=== PATIENT | female | born 1935 | race Caucasian/White ===

== ENCOUNTER 2016-09-19 22:09 | Emergency (ER) | payer OTHER ==
[~2016-09-19] VITALS: Ht 162.6 cm; Wt 125.1 kg
[~2016-09-19 22:09] MED LIST: ACID CONTROL150 MG PO; ALLERGY RELIEF10 MG PO; ALLOPURINOL100 MG PO; ASPIR-LOW81 MG PO; Alphagan P 0.15% Oph BOTH EYES; Amoxicillin PO; Aspirin E.C. PO; BABY ASPIRIN81 M1 PO; BRIMONIDINE TART5 ML BOTH EYES; CLARITIN10 M3 PO; COSOPT EYE DROPS5 ML BOTH EYES; COZAAR50 MG PO; Cipro PO; Claritin,Alavart PO; Cosopt 0.5% Ophth So BOTH EYES; Cozaar PO; DESYREL12.5 MG PO; Desyrel PO; FLUNISOLIDE25 ML BOTH NARES; Flonase BOTH NARES; HYDROCHLOROTH12.5 MG PO; HYDROCHLOROTHIA25 MG PO; Hydrodiuril,Oretic,E PO; INDOCIN25 MG PO; KLONOPIN0.5 M1 PO; KlonoPIN PO; LOSARTAN POTASS50 MG PO; Levothroid,Synthroid PO; Nitrostat,NitroQuick SL; OSTEO BI-FLEX1 EAC1 PO; PROAIR HFA8.5 GM IH; Pepcid PO; SIMVASTATIN20 MG PO; SYNTHROID100 MCG PO; TENORMIN50 MG PO; TRAZODONE HCL50 MG PO; Tenormin PO; Tylenol Regular Stre PO; ZANTAC150 MG PO; ZOCOR20 MG PO; ZYLOPRIM100 MG PO; Zocor PO; Zyloprim PO
[2016-09-19] MEDS ORDERED: NAPROSYN500 MG PO (23:28)
[2016-09-19 23:49] VITALS: BP 164/73
== END 2016-09-20 00:03 | disposition home or self-care (01) ==
LOC: EME → EDBD 22:09 → EME 22:09
DX: S83.92XA Sprain of unspecified site of left knee, initial encounter (principal); W01.0XXA Fall on same level from slipping, tripping and stumbling without subsequent striking against object, initial encounter; Y92.009 Unspecified place in unspecified non-institutional (private) residence as the place of occurrence of the external cause; I10 Essential (primary) hypertension; Z79.82 Long term (current) use of aspirin; Z87.891 Personal history of nicotine dependence
CPT/HCPCS: 73564; 99281; 99284

== ENCOUNTER 2016-09-29 09:28 | Inpatient (IN) | payer OTHER ==
[~2016-09-29] VITALS: Ht 162.6 cm; Wt 120.1 kg
[~2016-09-29 09:28] MED LIST changes: +NAPROSYN500 MG PO
[2016-09-29 10:27] LABS: HEMATOCRIT 31.4 % (36.0-46.0); MCH 26.6 PG (29.0-34.0); MCHC 30.3 G/DL (30.0-36.0); MEAN PLAT.VOLUME 9.8 uM^3 (9.5-12.4); PLATELET COUNT 300 K/uL (156-360); RBC DIS.WIDTH-CV 17.2 % (11.8-14.6); RBC DIS.WIDTH-SD 55.2 % (39-53); RED BLOOD COUNT 3.57 M/uL (3.80-5.20); WHITE BLOOD COUNT 11.2 K/uL (4.1-10.2)
[2016-09-29 10:41] LABS: CHLORIDE 102 mEq/L (99-109); POTASSIUM 4.4 mEq/L (3.7-5.4); SODIUM 139 mEq/L (136-147)
[2016-09-29 10:42] LABS: GLUCOSE 107 mg/dL (70-99)
[2016-09-29 10:44] LABS: ANION GAP 12 MEQ/L (2-14)
[2016-09-29 10:46] LABS: GFR ESTIMATE (CALCULATED) 46 mL/min/
[2016-09-29 10:47] LABS: UREA NITROGEN (BUN) 21 mg/dL (9-23)
[2016-09-29 11:45] LABS: TROP-I INTERPRETATION NEGATIVE; TROPONIN-I < 0.01 ng/mL (0.0-0.30)
[2016-09-29 12:13] LABS: D-DIMER ELISA 0.71 mg/L FEU (< 0.57)
[2016-09-29 13:04] LABS: EOSINOPHIL (%) 1.3 % (0-5); EOSINOPHIL COUNT 0.2 K/uL (0-0.3); HEMATOCRIT 32.5 % (36.0-46.0); IMMATURE GRANULOCYTE (%) 1.2 % (0.0-0.7); IMMATURE GRANULOCYTE COUNT 0.2 K/uL; INSTRUMENT ABS NEUTROPHIL CT 10.1 K/uL; LYMPHOCYTE COUNT 1.4 K/uL (1.0-2.8); MCH 26.7 PG (29.0-34.0); MCHC 30.2 G/DL (30.0-36.0); MCV 88.6 FL (83-99); MEAN PLAT.VOLUME 9.6 uM^3 (9.5-12.4); MONOCYTE (%) 8.2 % (3-12); MONOCYTE COUNT 1.1 K/uL (0-0.8); NEUTROPHIL (%) 78.1 % (45-76); NEUTROPHIL COUNT 10.1 K/uL (1.8-6.4); PLATELET COUNT 292 K/uL (156-360); RBC DIS.WIDTH-CV 17.2 % (11.8-14.6); RBC DIS.WIDTH-SD 55.3 % (39-53); RED BLOOD COUNT 3.67 M/uL (3.80-5.20); WHITE BLOOD COUNT 12.9 K/uL (4.1-10.2)
[2016-09-29] MEDS ORDERED: ASPIR-LOW81 MG PO (15:11)
[2016-09-29] MEDS ORDERED: LOSARTAN-HCTZ1 EACH PO (15:14)
[2016-09-29] MEDS ORDERED: CLARITIN,ALAVAR10 MG PO (15:14)
[2016-09-29] MEDS ORDERED: TENORMIN50 MG PO (15:18)
[2016-09-29] MEDS ORDERED: ZYLOPRIM100 MG PO (15:19)
[2016-09-29] MEDS ORDERED: KLONOPIN0.5 M1 PO (15:20)
[2016-09-29] MEDS ORDERED: LEVOTHYROXINE125 MCG PO (15:20)
[2016-09-29] MEDS ORDERED: ALPHAGAN P100 DROP/1 BOTH EYES (15:21)
[2016-09-29] MEDS ORDERED: COSOPT EYE DROPS5 ML BOTH EYES (15:21)
[2016-09-29] MEDS ORDERED: VITAMIN D31000 UNI2 PO (15:25)
[2016-09-29] MEDS ORDERED: OMEGA-3 FLAXS1000 MG PO (15:25)
[2016-09-29] MEDS ORDERED: OMEPRAZOLE20 M2 PO (15:26)
[2016-09-29] MEDS ORDERED: GABAPENTIN300 MG PO ×2 (15:26)
[2016-09-29] MEDS ORDERED: FLUNISOLIDE25 ML BOTH NARES (15:27)
[2016-09-29 19:30] VITALS: BP 179/75
[2016-09-29 20:14] LABS: TROP-I INTERPRETATION NEGATIVE; TROPONIN-I < 0.01 ng/mL (0.0-0.30)
[2016-09-30 00:20] VITALS: BP 159/69
[2016-09-30 04:00] VITALS: BP 132/60
[2016-09-30 04:25] LABS: INFLUENZA A VIRAL ANTIGEN NEGATIVE; INFLUENZA B VIRAL ANTIGEN NEGATIVE
[2016-09-30 04:47] LABS: EOSINOPHIL (%) 1.9 % (0-5); EOSINOPHIL COUNT 0.2 K/uL (0-0.3); HEMATOCRIT 32.1 % (36.0-46.0); IMMATURE GRANULOCYTE (%) 0.7 % (0.0-0.7); IMMATURE GRANULOCYTE COUNT 0.1 K/uL; LYMPHOCYTE COUNT 1.5 K/uL (1.0-2.8); MCH 26.7 PG (29.0-34.0); MCHC 30.5 G/DL (30.0-36.0); MCV 87.5 FL (83-99); MEAN PLAT.VOLUME 9.7 uM^3 (9.5-12.4); MONOCYTE (%) 8.1 % (3-12); MONOCYTE COUNT 0.9 K/uL (0-0.8); NEUTROPHIL (%) 74.5 % (45-76); PLATELET COUNT 324 K/uL (156-360); RBC DIS.WIDTH-CV 17.1 % (11.8-14.6); RBC DIS.WIDTH-SD 54.4 % (39-53); RED BLOOD COUNT 3.67 M/uL (3.80-5.20); WHITE BLOOD COUNT 10.7 K/uL (4.1-10.2)
[2016-09-30 04:59] LABS: CHLORIDE 101 mEq/L (99-109); POTASSIUM 4.1 mEq/L (3.7-5.4); SODIUM 142 mEq/L (136-147)
[2016-09-30 05:10] LABS: TROP-I INTERPRETATION NEGATIVE; TROPONIN-I < 0.01 ng/mL (0.0-0.30)
[2016-09-30 05:20] LABS: GFR ESTIMATE (CALCULATED) 35 mL/min/; GLUCOSE 80 mg/dL (70-99); UREA NITROGEN (BUN) 25 mg/dL (9-23)
[2016-09-30 08:06] LABS: INTERNAL CONTROL VALID? YES
[2016-09-30 09:35] VITALS: BP 134/62
[2016-09-30 11:45] VITALS: BP 104/59
[2016-09-30 15:57] VITALS: BP 145/67
[2016-09-30 19:19] VITALS: BP 160/83
[2016-10-01 00:29] VITALS: BP 143/67
[2016-10-01 03:05] VITALS: BP 136/65
[2016-10-01 07:44] VITALS: BP 148/68
[2016-10-01 09:04] LABS: HEMATOCRIT 31.5 % (36.0-46.0); MCH 26.8 PG (29.0-34.0); MCHC 30.2 G/DL (30.0-36.0); MCV 88.7 FL (83-99); MEAN PLAT.VOLUME 9.7 uM^3 (9.5-12.4); NRBC (%) 0.2 /100 WBC (0-0); PLATELET COUNT 316 K/uL (156-360); RBC DIS.WIDTH-SD 55.1 % (39-53); RED BLOOD COUNT 3.55 M/uL (3.80-5.20); WHITE BLOOD COUNT 8.4 K/uL (4.1-10.2)
[2016-10-01 09:29] LABS: ANION GAP 11 MEQ/L (2-14); CHLORIDE 98 MEQ/L (99-109); GFR ESTIMATE (CALCULATED) 42 mL/min/; POTASSIUM 3.7 MEQ/L (3.7-5.4); SAMPLE HEMOLYSIS CHECK 0; SAMPLE ICTERIC CHECK 0; SAMPLE LIPEMIA CHECK 0; SODIUM 140 MEQ/L (136-147); UREA NITROGEN (BUN) 21 mg/dL (9-23)
[2016-10-01 09:30] LABS: GLUCOSE 110 mg/dL (70-99)
[2016-10-01 13:02] VITALS: BP 150/72
[2016-10-01 16:26] VITALS: BP 141/63
[2016-10-01 19:27] VITALS: BP 169/71
[2016-10-02] VITALS (7 sets, daily range): BP systolic 135–171; BP diastolic 65–77
[2016-10-02 06:56] LABS: MCH 26.9 PG (29.0-34.0); MCHC 30.3 G/DL (30.0-36.0); MCV 88.6 FL (83-99); MEAN PLAT.VOLUME 9.5 uM^3 (9.5-12.4); PLATELET COUNT 328 K/uL (156-360); RBC DIS.WIDTH-CV 17.2 % (11.8-14.6); RBC DIS.WIDTH-SD 55.2 % (39-53); WHITE BLOOD COUNT 10.5 K/uL (4.1-10.2)
[2016-10-02 07:18] LABS: ANION GAP 11 MEQ/L (2-14); CHLORIDE 99 MEQ/L (99-109); GFR ESTIMATE (CALCULATED) 46 mL/min/; GLUCOSE 92 mg/dL (70-99); POTASSIUM 4.2 MEQ/L (3.7-5.4); SAMPLE HEMOLYSIS CHECK 0; SAMPLE ICTERIC CHECK 0; SAMPLE LIPEMIA CHECK 0; SODIUM 139 MEQ/L (136-147); UREA NITROGEN (BUN) 23 mg/dL (9-23)
[2016-10-03 04:41] VITALS: BP 175/82
[2016-10-03 06:52] LABS: HEMATOCRIT 31.7 % (36.0-46.0); MCH 26.9 PG (29.0-34.0); MCHC 30.3 G/DL (30.0-36.0); MCV 88.8 FL (83-99); MEAN PLAT.VOLUME 9.2 uM^3 (9.5-12.4); PLATELET COUNT 314 K/uL (156-360); RBC DIS.WIDTH-CV 16.9 % (11.8-14.6); RBC DIS.WIDTH-SD 54.8 % (39-53); RED BLOOD COUNT 3.57 M/uL (3.80-5.20); WHITE BLOOD COUNT 11.1 K/uL (4.1-10.2)
[2016-10-03 07:17] LABS: ANION GAP 10 MEQ/L (2-14); CHLORIDE 99 MEQ/L (99-109); GFR ESTIMATE (CALCULATED) 46 mL/min/; GLUCOSE 105 mg/dL (70-99); POTASSIUM 4.2 MEQ/L (3.7-5.4); SAMPLE HEMOLYSIS CHECK 0; SAMPLE ICTERIC CHECK 0; SAMPLE LIPEMIA CHECK 0; SODIUM 138 MEQ/L (136-147); UREA NITROGEN (BUN) 23 mg/dL (9-23)
[2016-10-03 07:51] VITALS: BP 170/74
[2016-10-03 09:00] VITALS: BP 171/80
[2016-10-03 11:08] VITALS: BP 118/60
[2016-10-03] MEDS ORDERED: CEFDINIR300 MG PO (12:41)
[2016-10-03 16:10] VITALS: BP 132/75
[2016-10-03 19:58] VITALS: BP 168/81
[2016-10-04] VITALS: BP 121/60
[2016-10-04 04:00] VITALS: BP 137/64
[2016-10-04 06:42] LABS: ANION GAP 11 MEQ/L (2-14); CHLORIDE 98 MEQ/L (99-109); GFR ESTIMATE (CALCULATED) 46 mL/min/; GLUCOSE 122 mg/dL (70-99); POTASSIUM 4.4 MEQ/L (3.7-5.4); SAMPLE HEMOLYSIS CHECK 0; SAMPLE ICTERIC CHECK 0; SAMPLE LIPEMIA CHECK 0; SODIUM 136 MEQ/L (136-147); UREA NITROGEN (BUN) 27 mg/dL (9-23)
[2016-10-04 09:13] VITALS: BP 122/65
[2016-10-04 12:56] VITALS: BP 132/80
[2016-10-04 15:58] VITALS: BP 140/73
[2016-10-04 20:00] VITALS: BP 147/68
[2016-10-05] VITALS: BP 128/65
[2016-10-05 04:00] VITALS: BP 109/53
[2016-10-05 08:29] VITALS: BP 135/63
[2016-10-05 08:42] LABS: HEMATOCRIT 33.4 % (36.0-46.0); MCH 26.8 PG (29.0-34.0); MCHC 30.8 G/DL (30.0-36.0); MEAN PLAT.VOLUME 9.7 uM^3 (9.5-12.4); PLATELET COUNT 406 K/uL (156-360); RBC DIS.WIDTH-CV 16.7 % (11.8-14.6); RBC DIS.WIDTH-SD 52.5 % (39-53); RED BLOOD COUNT 3.84 M/uL (3.80-5.20)
[2016-10-05 08:43] LABS: WHITE BLOOD COUNT 17.7 K/uL (4.1-10.2)
[2016-10-05 09:03] LABS: ANION GAP 12 MEQ/L (2-14); CHLORIDE 96 MEQ/L (99-109); GFR ESTIMATE (CALCULATED) 46 mL/min/; SAMPLE HEMOLYSIS CHECK 1; SAMPLE ICTERIC CHECK 0; SAMPLE LIPEMIA CHECK 0; SODIUM 135 MEQ/L (136-147); UREA NITROGEN (BUN) 37 mg/dL (9-23)
[2016-10-05 09:13] LABS: GLUCOSE 77 mg/dL (70-99)
[2016-10-05 11:18] VITALS: BP 122/57
[2016-10-05 15:11] VITALS: BP 137/66
[2016-10-05 19:36] VITALS: BP 149/68
[2016-10-06] VITALS: BP 145/64
[2016-10-06 04:09] VITALS: BP 146/61
[2016-10-06 07:08] LABS: EOSINOPHIL (%) 0.1 % (0-5); HEMATOCRIT 33.5 % (36.0-46.0); IMMATURE GRANULOCYTE (%) 1.2 % (0.0-0.7); IMMATURE GRANULOCYTE COUNT 0.2 K/uL; INSTRUMENT ABS NEUTROPHIL CT 14.8 K/uL; LYMPHOCYTE COUNT 2.3 K/uL (1.0-2.8); MCH 26.4 PG (29.0-34.0); MCHC 30.4 G/DL (30.0-36.0); MCV 86.8 FL (83-99); MEAN PLAT.VOLUME 9.8 uM^3 (9.5-12.4); MONOCYTE (%) 6.2 % (3-12); MONOCYTE COUNT 1.1 K/uL (0-0.8); NEUTROPHIL COUNT 14.8 K/uL (1.8-6.4); PLATELET COUNT 419 K/uL (156-360); RBC DIS.WIDTH-CV 16.9 % (11.8-14.6); RBC DIS.WIDTH-SD 52.7 % (39-53); RED BLOOD COUNT 3.86 M/uL (3.80-5.20); WHITE BLOOD COUNT 18.5 K/uL (4.1-10.2)
[2016-10-06 07:43] VITALS: BP 139/63
[2016-10-06 11:24] VITALS: BP 132/61
[2016-10-06] MEDS ORDERED: PREDNISONE20 MG PO (11:38)
[2016-10-06 15:37] VITALS: BP 142/65
[2016-10-06 19:37] VITALS: BP 156/68
[2016-10-07] VITALS (7 sets, daily range): BP systolic 130–160; BP diastolic 62–76
[2016-10-07 06:05] LABS: EOSINOPHIL (%) 0.2 % (0-5); HEMATOCRIT 33.2 % (36.0-46.0); IMMATURE GRANULOCYTE (%) 1.4 % (0.0-0.7); IMMATURE GRANULOCYTE COUNT 0.3 K/uL; INSTRUMENT ABS NEUTROPHIL CT 14.1 K/uL; LYMPHOCYTE COUNT 2.7 K/uL (1.0-2.8); MCH 26.9 PG (29.0-34.0); MCV 86.7 FL (83-99); MEAN PLAT.VOLUME 9.5 uM^3 (9.5-12.4); MONOCYTE (%) 8.3 % (3-12); MONOCYTE COUNT 1.6 K/uL (0-0.8); NEUTROPHIL (%) 75.2 % (45-76); NEUTROPHIL COUNT 14.1 K/uL (1.8-6.4); PLATELET COUNT 411 K/uL (156-360); RBC DIS.WIDTH-CV 16.8 % (11.8-14.6); RBC DIS.WIDTH-SD 52.6 % (39-53); RED BLOOD COUNT 3.83 M/uL (3.80-5.20); WHITE BLOOD COUNT 18.7 K/uL (4.1-10.2)
[2016-10-08 04:21] VITALS: BP 141/74
[2016-10-08 07:55] VITALS: BP 115/62
[2016-10-08 11:33] VITALS: BP 112/65
[2016-10-08 15:54] VITALS: BP 108/68
[2016-10-08 21:12] VITALS: BP 133/66
[2016-10-09] VITALS: BP 130/62
[2016-10-09 08:05] VITALS: BP 130/60
== END 2016-10-09 15:50 | disposition home or self-care (01) | DRG 194 ==
LOC: EME 09:28 → 4EAST 15:01 → 5SOUTH 15:01 → EDOF 15:01 → 4EAST 18:08 → 5SOUTH 10-03 07:40
PROVIDERS: Emergency Medicine; Hospitalist; Internal Medicine; Physician Assistant
DX: J18.9 Pneumonia, unspecified organism (principal); Z87.891 Personal history of nicotine dependence; K21.9 Gastro-esophageal reflux disease without esophagitis; I10 Essential (primary) hypertension; F32.9 Major depressive disorder, single episode, unspecified; G89.29 Other chronic pain; E66.9 Obesity, unspecified; Z68.42 Body mass index [BMI] 45.0-49.9, adult; E78.5 Hyperlipidemia, unspecified; D64.9 Anemia, unspecified; J81.1 Chronic pulmonary edema; S83.92XA Sprain of unspecified site of left knee, initial encounter; X58.XXXA Exposure to other specified factors, initial encounter; J44.1 Chronic obstructive pulmonary disease with (acute) exacerbation; J44.0 Chronic obstructive pulmonary disease with (acute) lower respiratory infection; R09.02 Hypoxemia; E03.9 Hypothyroidism, unspecified; Z86.73 Personal history of transient ischemic attack (TIA), and cerebral infarction without residual deficits; I27.2 Other secondary pulmonary hypertension; N17.9 Acute kidney failure, unspecified
CPT/HCPCS: 71010; 71020; 71275; 80048; 83605; 83880; 84484; 85025; 85025 91; 85027; 85379; 87040; 87070; 87205; 87449; 87502; 93005; 93306; 94010; 94640; 94640 76; 94667; 94668; 94760; 94799; 97530 GO; 99202; 99281; 99284; J0456; J0696; J1650; J1940; J7050; J7512

== ENCOUNTER 2017-06-11 12:30 | Inpatient (IN) | payer OTHER ==
[~2017-06-11] VITALS: Ht 162.6 cm; Wt 118.5 kg
[~2017-06-11 12:30] MED LIST changes: +ALPHAGAN P100 DROP/1 BOTH EYES; +CALCIUM 600 +1 EAC2 PO; +CEFDINIR300 MG PO; +CLARITIN,ALAVAR10 MG PO; +GABAPENTIN300 MG PO; +LEVOTHYROXINE125 MCG PO; +LOSARTAN-HCTZ1 EACH PO; +OMEGA-3 FLAXS1000 MG PO; +OMEPRAZOLE20 M2 PO; +PREDNISONE20 MG PO
[2017-06-11 13:41] LABS: HEMATOCRIT 24.8 % (36.0-46.0); HEMOGLOBIN 6.9 G/DL (11.9-15.5); MCH 21.2 PG (29.0-34.0); MCHC 27.8 G/DL (30.0-36.0); MCV 76.1 FL (83-99); NRBC (%) 0.4 /100 WBC (0-0); PLATELET COUNT 362 K/uL (156-360); RBC DIS.WIDTH-CV 19.9 % (11.8-14.6); RBC DIS.WIDTH-SD 53.5 % (39-53); RED BLOOD COUNT 3.26 M/uL (3.80-5.20); WHITE BLOOD COUNT 10.9 K/uL (4.1-10.2)
[2017-06-11 13:46] LABS: CHLORIDE 98 mEq/L (99-109); POTASSIUM 4.2 mEq/L (3.7-5.4); SODIUM 134 mEq/L (136-147)
[2017-06-11 13:48] LABS: GLUCOSE 103 mg/dL (70-99)
[2017-06-11 13:52] LABS: CREATININE 1.2 mg/dL (0.6-1.3); GFR ESTIMATE (CALCULATED) 46 mL/min/; UREA NITROGEN (BUN) 19 mg/dL (9-23)
[2017-06-11 14:00] LABS: TROP-I INTERPRETATION NEGATIVE; TROPONIN-I 0.01 ng/mL (0.0-0.30)
[2017-06-11 15:24] LABS: INTER. NORMALIZED RATIO 1.2
[2017-06-11 15:26] LABS: PTT 27.7 SEC (25-37)
[2017-06-11] MEDS ORDERED: EYE DROP BOTH EYES (17:13)
[2017-06-11 19:17] VITALS: BP 147/73
[2017-06-11 20:13] VITALS: BP 158/135
[2017-06-11 20:35] VITALS: BP 162/103
[2017-06-11 20:56] LABS: TROP-I INTERPRETATION NEGATIVE; TROPONIN-I 0.02 ng/mL (0.0-0.30)
[2017-06-11 21:50] VITALS: BP 161/78
[2017-06-11 22:10] LABS: STOOL OCCULT BLD 1ST SPECIMEN NEGATIVE
[2017-06-11 22:12] VITALS: BP 187/108
[2017-06-11 23:07] LABS: C DIFF TOXIN NEGATIVE (NEGATIVE)
[2017-06-11 23:39] VITALS: BP 132/71
[2017-06-12 03:53] VITALS: BP 128/60
[2017-06-12 04:18] LABS: HEMATOCRIT 27.4 % (36.0-46.0); HEMOGLOBIN 8.4 G/DL (11.9-15.5); MCH 23.3 PG (29.0-34.0); MCHC 30.7 G/DL (30.0-36.0); MCV 76.1 FL (83-99); NRBC (%) 0.2 /100 WBC (0-0); PLATELET COUNT 343 K/uL (156-360); RBC DIS.WIDTH-CV 18.3 % (11.8-14.6); RBC DIS.WIDTH-SD 50.3 % (39-53)
[2017-06-12 04:53] LABS: TROP-I INTERPRETATION NEGATIVE; TROPONIN-I 0.06 ng/mL (0.0-0.30)
[2017-06-12 07:35] VITALS: BP 142/66
[2017-06-12 11:18] VITALS: BP 130/60
[2017-06-12 13:42] VITALS: BP 132/70
[2017-06-12 19:54] VITALS: BP 166/70
[2017-06-13 00:12] VITALS: BP 173/79
[2017-06-13 03:48] VITALS: BP 131/61
[2017-06-13 06:08] LABS: IRON 25 MCG/DL (35-150); TRANSFERRIN (TIBC) 322.3 mg/dL (215-380); TRANSFERRIN SATUR. 8 % (20-55)
[2017-06-13 06:16] LABS: APPEARANCE CLEAR ((CLEAR)); BILIRUBIN NEGATIVE; BLOOD NEGATIVE; COLOR YELLOW ((YELLOW)); GLUCOSE (STRIP) NEGATIVE; KETONES NEGATIVE; LEUKOCYTES NEGATIVE; NITRITE NEGATIVE; PROTEIN (STRIP) NEGATIVE; SPECIFIC GRAVITY 1.013 (1.000-1.030); UCUL ADDED? NO
[2017-06-13 08:00] LABS: FERRITIN 21 NG/ML (10-291); FOLIC ACID (FOLATE) 9.1 NG/ML (5.0-22.0)
[2017-06-13 08:13] LABS: THYROTROPIN (TSH) 0.86 MIU/L (0.4-5.5)
[2017-06-13 08:43] LABS: HEMATOCRIT 27.2 % (36.0-46.0); HEMOGLOBIN 7.9 G/DL (11.9-15.5); MCH 22.9 PG (29.0-34.0); MCV 78.8 FL (83-99); PLATELET COUNT 319 K/uL (156-360); RBC DIS.WIDTH-CV 19.4 % (11.8-14.6); RBC DIS.WIDTH-SD 55.2 % (39-53); RED BLOOD COUNT 3.45 M/uL (3.80-5.20); WHITE BLOOD COUNT 9.5 K/uL (4.1-10.2)
[2017-06-13 08:58] VITALS: BP 145/67
[2017-06-13 16:02] VITALS: BP 156/71
[2017-06-13 19:38] VITALS: BP 154/71
[2017-06-14 00:05] VITALS: BP 136/66
[2017-06-14 07:34] VITALS: BP 138/68
[2017-06-14 12:23] LABS: BASOPHIL (%) 0.4 % (0-1); EOSINOPHIL (%) 1.4 % (0-5); EOSINOPHIL COUNT 0.1 K/uL (0-0.3); HEMATOCRIT 28.9 % (36.0-46.0); HEMOGLOBIN 8.2 G/DL (11.9-15.5); IMMATURE GRANULOCYTE (%) 0.6 % (0.0-0.7); LYMPHOCYTE (%) 19.4 % (15-42); LYMPHOCYTE COUNT 1.5 K/uL (1.0-2.8); MCH 22.3 PG (29.0-34.0); MCHC 28.4 G/DL (30.0-36.0); MCV 78.5 FL (83-99); MONOCYTE (%) 14.8 % (3-12); MONOCYTE COUNT 1.2 K/uL (0-0.8); NEUTROPHIL (%) 63.4 % (45-76); PLATELET COUNT 311 K/uL (156-360); RBC DIS.WIDTH-CV 19.6 % (11.8-14.6); RBC DIS.WIDTH-SD 55.2 % (39-53); RED BLOOD COUNT 3.68 M/uL (3.80-5.20); WHITE BLOOD COUNT 7.8 K/uL (4.1-10.2)
[2017-06-14 12:46] LABS: CHLORIDE 98 MEQ/L (99-109); CREATININE 1.1 MG/DL (0.6-1.3); GFR ESTIMATE (CALCULATED) 51 mL/min/; GLUCOSE 94 mg/dL (70-99); POTASSIUM 3.9 MEQ/L (3.7-5.4); SODIUM 136 MEQ/L (136-147); UREA NITROGEN (BUN) 16 mg/dL (9-23)
[2017-06-14 17:14] VITALS: BP 149/67
[2017-06-14 23:32] VITALS: BP 111/57
[2017-06-15 06:44] LABS: BASOPHIL (%) 0.6 % (0-1); BASOPHIL COUNT 0.1 K/uL (0-0.1); EOSINOPHIL (%) 3.3 % (0-5); EOSINOPHIL COUNT 0.3 K/uL (0-0.3); HEMATOCRIT 30.2 % (36.0-46.0); HEMOGLOBIN 8.7 G/DL (11.9-15.5); IMMATURE GRANULOCYTE (%) 0.9 % (0.0-0.7); LYMPHOCYTE COUNT 1.1 K/uL (1.0-2.8); MCH 23.2 PG (29.0-34.0); MCHC 28.8 G/DL (30.0-36.0); MCV 80.5 FL (83-99); MONOCYTE (%) 10.9 % (3-12); MONOCYTE COUNT 0.9 K/uL (0-0.8); NEUTROPHIL (%) 71.3 % (45-76); NEUTROPHIL COUNT 5.8 K/uL (1.8-6.4); PLATELET COUNT 306 K/uL (156-360); RBC DIS.WIDTH-CV 19.9 % (11.8-14.6); RBC DIS.WIDTH-SD 57.6 % (39-53); RED BLOOD COUNT 3.75 M/uL (3.80-5.20); WHITE BLOOD COUNT 8.2 K/uL (4.1-10.2)
[2017-06-15 07:05] LABS: CHLORIDE 99 MEQ/L (99-109); CREATININE 1.1 MG/DL (0.6-1.3); GFR ESTIMATE (CALCULATED) 51 mL/min/; GLUCOSE 115 mg/dL (70-99); POTASSIUM 3.7 MEQ/L (3.7-5.4); SODIUM 137 MEQ/L (136-147); UREA NITROGEN (BUN) 16 mg/dL (9-23)
[2017-06-15 08:00] VITALS: BP 160/82
[2017-06-15 16:00] VITALS: BP 146/65
[2017-06-15 23:19] VITALS: BP 133/63
[2017-06-16 07:06] LABS: BASOPHIL (%) 0.1 % (0-1); EOSINOPHIL (%) 0 % (0-5); HEMATOCRIT 29.2 % (36.0-46.0); HEMOGLOBIN 8.4 G/DL (11.9-15.5); IMMATURE GRANULOCYTE (%) 2.2 % (0.0-0.7); LYMPHOCYTE (%) 8.2 % (15-42); LYMPHOCYTE COUNT 0.8 K/uL (1.0-2.8); MCH 23.1 PG (29.0-34.0); MCHC 28.8 G/DL (30.0-36.0); MCV 80.2 FL (83-99); MONOCYTE (%) 4.4 % (3-12); MONOCYTE COUNT 0.4 K/uL (0-0.8); NEUTROPHIL (%) 85.1 % (45-76); NEUTROPHIL COUNT 8.5 K/uL (1.8-6.4); NRBC (%) 0.2 /100 WBC (0-0); PLATELET COUNT 300 K/uL (156-360); RBC DIS.WIDTH-CV 19.3 % (11.8-14.6); RBC DIS.WIDTH-SD 56.2 % (39-53); RED BLOOD COUNT 3.64 M/uL (3.80-5.20)
[2017-06-16 07:12] LABS: CHLORIDE 101 MEQ/L (99-109); CREATININE 1.1 MG/DL (0.6-1.3); GFR ESTIMATE (CALCULATED) 51 mL/min/; GLUCOSE 131 mg/dL (70-99); SODIUM 138 MEQ/L (136-147); UREA NITROGEN (BUN) 15 mg/dL (9-23)
[2017-06-16 07:34] VITALS: BP 163/72
[2017-06-16 07:48] LABS: CA 19-9+ 20 U/mL (<34)
[2017-06-16 11:19] LABS: VANCOMYCIN, TROUGH 12.2 MCG/ML (10-20)
[2017-06-16 16:06] VITALS: BP 156/75
[2017-06-16 19:07] LABS: CHROMOGRANIN A 2429 ng/mL (25-140)
[2017-06-17 00:23] VITALS: BP 158/70
[2017-06-17 05:56] LABS: BASE EXCESS 3.8 mEq/L (-3 to +3); BICARBONATE 29.9 mEq/L (22-26); CARBOXY HGB 1.8 % (0-5); COMMENTS - BLOOD GASES C+; DEVICE NC; METHEMOGLOBIN 1.3 % (0-1.5); O2 FLOW 3 L/MIN; PCO2 53 mm Hg (35-45); PO2 87 mm Hg (80-100); SITE LR; TOTAL RESP RATE 28 resp/min; pH 7.36 (7.35-7.45)
[2017-06-17 06:35] LABS: TROP-I INTERPRETATION NEGATIVE; TROPONIN-I 0.01 ng/mL (0.0-0.30)
[2017-06-17 06:49] LABS: HEMATOCRIT 30.4 % (36.0-46.0); HEMOGLOBIN 8.7 G/DL (11.9-15.5); MCH 23.1 PG (29.0-34.0); MCHC 28.6 G/DL (30.0-36.0); MCV 80.6 FL (83-99); NRBC (%) 0.1 /100 WBC (0-0); RBC DIS.WIDTH-CV 19.8 % (11.8-14.6); RED BLOOD COUNT 3.77 M/uL (3.80-5.20); WHITE BLOOD COUNT 16.1 K/uL (4.1-10.2)
[2017-06-17 06:56] LABS: PLAT.SUFFICIENCY ADEQUATE
[2017-06-17 06:59] LABS: PLATELET COUNT 413 K/uL (156-360)
[2017-06-17 08:09] VITALS: BP 171/69
[2017-06-17 12:18] VITALS: BP 164/82
[2017-06-17 16:09] VITALS: BP 172/75
[2017-06-17 19:44] VITALS: BP 186/87
[2017-06-17 23:37] VITALS: BP 170/77
[2017-06-18 03:56] VITALS: BP 163/71
[2017-06-18 07:19] LABS: HEMATOCRIT 28.8 % (36.0-46.0); HEMOGLOBIN 8.1 G/DL (11.9-15.5); MCH 22.7 PG (29.0-34.0); MCHC 28.1 G/DL (30.0-36.0); MCV 80.7 FL (83-99); PLATELET COUNT 354 K/uL (156-360); RBC DIS.WIDTH-CV 20.1 % (11.8-14.6); RBC DIS.WIDTH-SD 56.8 % (39-53); RED BLOOD COUNT 3.57 M/uL (3.80-5.20); WHITE BLOOD COUNT 15.3 K/uL (4.1-10.2)
[2017-06-18 07:44] LABS: CHLORIDE 99 MEQ/L (99-109); CREATININE 1.4 MG/DL (0.6-1.3); GFR ESTIMATE (CALCULATED) 38 mL/min/; GLUCOSE 156 mg/dL (70-99); POTASSIUM 3.4 MEQ/L (3.7-5.4); SODIUM 144 MEQ/L (136-147)
[2017-06-18 07:45] LABS: UREA NITROGEN (BUN) 31 mg/dL (9-23)
[2017-06-18 08:05] VITALS: BP 186/79
[2017-06-18] MEDS ORDERED: ELIQUIS5 MG PO (10:49)
[2017-06-18 11:44] VITALS: BP 192/77
[2017-06-18 16:25] VITALS: BP 191/80
[2017-06-18 20:36] VITALS: BP 174/72
[2017-06-19 00:12] VITALS: BP 165/72
[2017-06-19 04:13] VITALS: BP 172/77
[2017-06-19 07:16] VITALS: BP 180/81
[2017-06-19 07:31] LABS: CHLORIDE 96 MEQ/L (99-109); CREATININE 1.2 MG/DL (0.6-1.3); GFR ESTIMATE (CALCULATED) 46 mL/min/; GLUCOSE 127 mg/dL (70-99); POTASSIUM 3.8 MEQ/L (3.7-5.4); SODIUM 143 MEQ/L (136-147); UREA NITROGEN (BUN) 36 mg/dL (9-23)
[2017-06-19 11:50] VITALS: BP 182/70
[2017-06-19 12:05] VITALS: BP 200/86
[2017-06-19 20:08] VITALS: BP 183/74
[2017-06-20 00:26] VITALS: BP 150/68
[2017-06-20 08:13] VITALS: BP 190/86
[2017-06-20 12:50] VITALS: BP 178/77
[2017-06-20 16:05] VITALS: BP 182/79
[2017-06-20 19:59] VITALS: BP 187/81
[2017-06-21 00:51] VITALS: BP 154/72
[2017-06-21 04:00] VITALS: BP 141/69
[2017-06-21 06:51] LABS: HEMATOCRIT 34.8 % (36.0-46.0); HEMOGLOBIN 9.9 G/DL (11.9-15.5); MCH 22.7 PG (29.0-34.0); MCHC 28.4 G/DL (30.0-36.0); MCV 79.8 FL (83-99); NRBC (%) 0.3 /100 WBC (0-0); PLATELET COUNT 423 K/uL (156-360); RBC DIS.WIDTH-CV 22.1 % (11.8-14.6); RBC DIS.WIDTH-SD 60.5 % (39-53)
[2017-06-21 07:04] LABS: RED BLOOD COUNT 4.36 M/uL (3.80-5.20)
[2017-06-21 07:15] LABS: CHLORIDE 91 MEQ/L (99-109); CREATININE 1.1 MG/DL (0.6-1.3); GFR ESTIMATE (CALCULATED) 51 mL/min/; GLUCOSE 122 mg/dL (70-99); SODIUM 138 MEQ/L (136-147); UREA NITROGEN (BUN) 43 mg/dL (9-23)
[2017-06-21 08:30] VITALS: BP 184/85
[2017-06-21 12:17] VITALS: BP 169/80
[2017-06-21] MEDS ORDERED: ADVAIR HFA120 INHALA IH (12:50)
[2017-06-21] MEDS ORDERED: BISACODYL5 MG PO (12:50)
[2017-06-21] MEDS ORDERED: PREDNISONE10 MG PO (12:50)
[2017-06-21] MEDS ORDERED: AMOX TR-K CLV1 EAC4 PO (12:50)
[2017-06-21] MEDS ORDERED: DUONEB 2.5-0.5 M3 ML AEROSOL (12:50)
[2017-06-21] MEDS ORDERED: SPIRIVA1 INHALATI IH (12:50)
[2017-06-21] MEDS ORDERED: FLUCONAZOLE100 MG PO (15:05)
== END 2017-06-21 14:09 | disposition home health service (06) | DRG 811 ==
LOC: EME 12:30 → EDOF 15:39 → 5SOUTH 15:39 → ENRESERV 15:50 → 5SOUTH 21:33 → ENPENDDIS 06-21 12:59 → 5SOUTH 06-21 14:09
PROVIDERS: Anesthesiology; Emergency Medicine; Hospitalist; Internal Medicine; Urology
PROC: 30233N1 Transfusion of Nonautologous Red Blood Cells into Peripheral Vein, Percutaneous Approach (ICD-10-PCS; 2017-06-11)
PROC: 0DJ08ZZ Inspection of Upper Intestinal Tract, Via Natural or Artificial Opening Endoscopic (ICD-10-PCS; principal; 2017-06-12)
DX: D62 Acute posthemorrhagic anemia (principal); J96.21 Acute and chronic respiratory failure with hypoxia; J18.9 Pneumonia, unspecified organism; J44.0 Chronic obstructive pulmonary disease with (acute) lower respiratory infection; I26.99 Other pulmonary embolism without acute cor pulmonale; B37.81 Candidal esophagitis; C64.9 Malignant neoplasm of unspecified kidney, except renal pelvis; D3A.8 Other benign neuroendocrine tumors; K92.2 Gastrointestinal hemorrhage, unspecified; K29.70 Gastritis, unspecified, without bleeding; J44.1 Chronic obstructive pulmonary disease with (acute) exacerbation; Z99.81 Dependence on supplemental oxygen; K76.6 Portal hypertension; K31.89 Other diseases of stomach and duodenum; D35.02 Benign neoplasm of left adrenal gland; D35.01 Benign neoplasm of right adrenal gland; E87.1 Hypo-osmolality and hyponatremia; J98.11 Atelectasis; I69.351 Hemiplegia and hemiparesis following cerebral infarction affecting right dominant side; I10 Essential (primary) hypertension; E03.9 Hypothyroidism, unspecified; E78.5 Hyperlipidemia, unspecified; G89.29 Other chronic pain; F32.9 Major depressive disorder, single episode, unspecified; F41.9 Anxiety disorder, unspecified; E66.01 Morbid (severe) obesity due to excess calories; Z68.41 Body mass index [BMI] 40.0-44.9, adult; K21.9 Gastro-esophageal reflux disease without esophagitis; K44.9 Diaphragmatic hernia without obstruction or gangrene; K59.00 Constipation, unspecified; N28.1 Cyst of kidney, acquired; Z87.891 Personal history of nicotine dependence; G43.909 Migraine, unspecified, not intractable, without status migrainosus
CPT/HCPCS: 36600; 71045; 71046; 71275; 74177; 74183; 80048; 80202; 81003; 82272; 82533 91; 82607; 82728; 82746; 82803; 83540; 83605; 83880; 84443; 84466; 84484; 85025; 85027; 85610; 85730; 86301 90; 86316 90; 86850; 86900; 86901; 86920; 87040; 87493; 87502; 93005; 93306; 93970; 94640; 94640 76; 94799; 99202; 99281; 99285; C9113; J1650; J1756; J1940; J2060; J2543; J2920; J2930; J3370; J3475; J7040; J7050; J7512; P9016

== ENCOUNTER 2017-07-14 13:20 | Inpatient (IN) | payer OTHER ==
[~2017-07-14] VITALS: Ht 162.6 cm; Wt 118.6 kg
[2017-07-14] VITALS (10 sets, daily range): BP systolic 124–181; BP diastolic 59–74
[~2017-07-14 13:20] MED LIST changes: +ADVAIR HFA120 INHALA IH; +AMOX TR-K CLV1 EAC4 PO; +BISACODYL5 MG PO; +DUONEB 2.5-0.5 M3 ML AEROSOL; +ELIQUIS5 MG PO; +FLUCONAZOLE100 MG PO; +PREDNISONE10 MG PO; +SPIRIVA1 INHALATI IH; +TRAVATAN Z5 ML BOTH EYES
[2017-07-14 14:00] LABS: HEMATOCRIT 20.4 % (36.0-46.0); MCH 26.1 PG (29.0-34.0); MCHC 29.4 G/DL (30.0-36.0); MCV 88.7 FL (83-99); NRBC (%) 0.5 /100 WBC (0-0); RBC DIS.WIDTH-CV 24.3 % (11.8-14.6); RBC DIS.WIDTH-SD 78.5 % (39-53); WHITE BLOOD COUNT 5.6 K/uL (4.1-10.2)
[2017-07-14 14:03] LABS: ALBUMIN 3.3 g/dL (3.2-4.8); CHLORIDE 105 mEq/L (99-109); POTASSIUM 3.9 mEq/L (3.7-5.4); SODIUM 141 mEq/L (136-147)
[2017-07-14 14:05] LABS: GLUCOSE 156 mg/dL (70-99)
[2017-07-14 14:06] LABS: TOTAL PROTEIN 5.8 g/dL (6.4-8.3)
[2017-07-14 14:07] LABS: TOTAL BILIRUBIN 0.4 mg/dL (0.0-1.0)
[2017-07-14 14:09] LABS: ALKALINE PHOSPHATASE 35 IU/L (3-129); GFR ESTIMATE (CALCULATED) 56 mL/min/
[2017-07-14 14:10] LABS: UREA NITROGEN (BUN) 21 mg/dL (9-23)
[2017-07-14 14:11] LABS: AST (GOT) 21 IU/L (2-34)
[2017-07-14 14:12] LABS: ALT (GPT) 21 IU/L (3-49)
[2017-07-14 14:45] LABS: PLAT.SUFFICIENCY ADEQUATE; PLATELET COUNT 258 K/uL (156-360)
[2017-07-14] MEDS ORDERED: SPIRIVA1 INHALATI IH (15:11)
[2017-07-14] MEDS ORDERED: DUONEB 2.5-0.5 M3 ML AEROSOL (15:11)
[2017-07-14] MEDS ORDERED: ELIQUIS5 MG PO (15:12)
[2017-07-14] MEDS ORDERED: ADVAIR HFA120 INHALA IH (15:13)
[2017-07-15 04:14] VITALS: BP 131/61
[2017-07-15 05:16] LABS: HEMATOCRIT 24.6 % (36.0-46.0); HEMOGLOBIN 7.4 G/DL (11.9-15.5); MCH 26.6 PG (29.0-34.0); MCHC 30.1 G/DL (30.0-36.0); MCV 88.5 FL (83-99); NRBC (%) 0.8 /100 WBC (0-0); PLATELET COUNT 265 K/uL (156-360); RBC DIS.WIDTH-CV 20.8 % (11.8-14.6); RBC DIS.WIDTH-SD 66.4 % (39-53); WHITE BLOOD COUNT 6.4 K/uL (4.1-10.2)
[2017-07-15 05:18] LABS: INTER. NORMALIZED RATIO 1.4
[2017-07-15 05:21] LABS: PTT 29.4 SEC (25-37); RED BLOOD COUNT 2.78 M/uL (3.80-5.20)
[2017-07-15 05:44] LABS: CHLORIDE 103 MEQ/L (99-109); CREATININE 0.9 MG/DL (0.6-1.3); GFR ESTIMATE (CALCULATED) > 59 mL/min/; GLUCOSE 107 mg/dL (70-99); SODIUM 141 MEQ/L (136-147); UREA NITROGEN (BUN) 17 mg/dL (9-23)
[2017-07-15 08:41] VITALS: BP 141/66
[2017-07-15 11:33] VITALS: BP 133/60
[2017-07-15 15:44] VITALS: BP 144/67
[2017-07-15 20:00] VITALS: BP 159/74
[2017-07-16] VITALS (16 sets, daily range): BP systolic 106–155; BP diastolic 56–87
[2017-07-16 09:00] LABS: HEMATOCRIT 31.3 % (36.0-46.0); MCH 25.9 PG (29.0-34.0); MCHC 30.7 G/DL (30.0-36.0); MCV 84.6 FL (83-99); PLATELET COUNT 282 K/uL (156-360); RBC DIS.WIDTH-CV 22.6 % (11.8-14.6); RBC DIS.WIDTH-SD 69.9 % (39-53); WHITE BLOOD COUNT 6.7 K/uL (4.1-10.2)
[2017-07-16 09:03] LABS: HEMOGLOBIN 9.6 G/DL (11.9-15.5)
[2017-07-16 09:18] LABS: CHLORIDE 101 MEQ/L (99-109); GFR ESTIMATE (CALCULATED) 56 mL/min/; GLUCOSE 108 mg/dL (70-99); POTASSIUM 3.8 MEQ/L (3.7-5.4); SODIUM 140 MEQ/L (136-147); UREA NITROGEN (BUN) 13 mg/dL (9-23)
[2017-07-17 03:50] VITALS: BP 134/55
[2017-07-17 11:38] VITALS: BP 140/63
[2017-07-17 19:54] VITALS: BP 146/70
[2017-07-17 23:08] VITALS: BP 122/56
[2017-07-18 03:35] VITALS: BP 121/58
[2017-07-18 05:50] LABS: HEMATOCRIT 32.1 % (36.0-46.0); HEMOGLOBIN 9.7 G/DL (11.9-15.5); MCH 26.1 PG (29.0-34.0); MCHC 30.2 G/DL (30.0-36.0); MCV 86.3 FL (83-99); PLATELET COUNT 319 K/uL (156-360); RBC DIS.WIDTH-CV 22.2 % (11.8-14.6); RBC DIS.WIDTH-SD 69.6 % (39-53); RED BLOOD COUNT 3.72 M/uL (3.80-5.20); WHITE BLOOD COUNT 8.5 K/uL (4.1-10.2)
[2017-07-18 06:22] LABS: CHLORIDE 101 MEQ/L (99-109); CREATININE 1.1 MG/DL (0.6-1.3); GFR ESTIMATE (CALCULATED) 51 mL/min/; GLUCOSE 85 mg/dL (70-99); POTASSIUM 3.8 MEQ/L (3.7-5.4); SODIUM 141 MEQ/L (136-147); UREA NITROGEN (BUN) 15 mg/dL (9-23)
[2017-07-18 07:30] VITALS: BP 164/75
[2017-07-18 11:23] VITALS: BP 176/80
[2017-07-18] MEDS ORDERED: PREDNISONE10 MG PO (13:51)
== END 2017-07-18 15:01 | disposition home health service (06) | DRG 357 ==
LOC: EME 13:20 → EDOF 15:26 → 5WEST 15:26 → EDOF 15:26 → ENRESERV 15:30 → 5WEST 19:14 → ENRESERV 07-15 10:40 → CANRESERV 07-15 10:40 → 5WEST 07-18 15:01
PROVIDERS: Family Medicine; Internal Medicine; Nurse Practitioner Adult Health
DX: K92.1 Melena (principal); D62 Acute posthemorrhagic anemia; J44.9 Chronic obstructive pulmonary disease, unspecified; N28.89 Other specified disorders of kidney and ureter; K57.30 Diverticulosis of large intestine without perforation or abscess without bleeding; K63.5 Polyp of colon; K64.8 Other hemorrhoids; R09.02 Hypoxemia; I10 Essential (primary) hypertension; K21.9 Gastro-esophageal reflux disease without esophagitis; D3A.8 Other benign neuroendocrine tumors; E78.5 Hyperlipidemia, unspecified; F41.9 Anxiety disorder, unspecified; F32.9 Major depressive disorder, single episode, unspecified; E89.0 Postprocedural hypothyroidism; Z99.81 Dependence on supplemental oxygen; I69.351 Hemiplegia and hemiparesis following cerebral infarction affecting right dominant side; I69.398 Other sequelae of cerebral infarction; H54.7 Unspecified visual loss; E66.01 Morbid (severe) obesity due to excess calories; Z68.41 Body mass index [BMI] 40.0-44.9, adult; Z79.01 Long term (current) use of anticoagulants; Z85.528 Personal history of other malignant neoplasm of kidney; Z86.711 Personal history of pulmonary embolism; Z87.01 Personal history of pneumonia (recurrent); Z87.891 Personal history of nicotine dependence
CPT/HCPCS: 71046; 80048; 80053; 85027; 85610; 85730; 86850; 86900; 86901; 86920; 94640; 94640 76; 94799; 99202; 99281; 99285; C1769; C1894; C9113; G0378; J1940; J2250; J3010; J7512; P9016